=== PATIENT | female | born 1980 | race Caucasian/White ===

== ENCOUNTER 2018-04-26 15:12 | Emergency (ER) | payer SELFPAY ==
[2018-04-26 16:12] VITALS: BMI 31.7
[2018-04-26 16:15] VITALS: BP 120/79; PULSE 63; RESP 18; TEMP 98.3; O2SAT 100
[2018-04-26] MEDS ORDERED: Lidocaine 1% Inj (20ml) IJ STA (16:16)
--- NOTE | 2018-04-26 16:16 | ED PDOC ---
Arrival/HPI - General Chief Complaint: Abnormal Skin Integrity Time Seen by Provider: 04/26/18 16:15 Historian: Patient - History of Present Illness Narrative History of Present Illness (Text): 04/26/18 16:15 37 y/o female, no significant pmh, nkda, last tetanus over 10 years ago, c/o lt. hand palmar laceration x 2 hours s/p cut by the metal spatula. Pt. stated that it's a clean spatula, was bleeding but resolved, no numbness or tingling, no weakness, no palpitation, no headache, no dizziness, no other medical or psychological complaints. Past Medical History - Provider Review Nursing Documentation Reviewed: Yes - Infectious Disease Hx of Infectious Diseases: None - Psychiatric Hx Substance Use: No - Surgical History Hx Section: Yes (x2) - Anesthesia Hx Anesthesia: Yes Hx Anesthesia Reactions: No Hx Malignant Hyperthermia: No Family/Social History - Physician Review Nursing Documentation Reviewed: Yes Family/Social History: Unknown Family HX Smoking Status: Never Smoked Hx Alcohol Use: No Hx Substance Use: No Allergies/Home Meds Allergies/Adverse Reactions: Allergies No Known Allergies Allergy (Verified 04/26/18 16:12) Home Medications: Home Meds Medication Instructions Recorded Confirmed No Known Home Med 04/26/18 04/26/18 Review of Systems - Review of Systems Constitutional: absent: Fatigue, Fevers Eyes: absent: Vision Changes ENT: absent: Hearing Changes Respiratory: absent: SOB, Cough Cardiovascular: absent: Chest Pain Gastrointestinal: absent: Abdominal Pain, Nausea, Vomiting Musculoskeletal: absent: Arthralgias, Back Pain Skin: Laceration. absent: Rash, Pruritis, Abscess, Ulcer, Cellulitis Neurological: absent: Headache, Dizziness Psychiatric: absent: Anxiety, Depression, Suicidal Ideation Physical Exam Vital Signs Reviewed: Yes Vital Signs Temp Pulse Resp BP Pulse Ox 04/26/18 16:15 98.3 F 63 18 120/79 100 Temperature: Afebrile Blood Pressure: Normal Pulse: Regular Respiratory Rate: Normal Appearance: Positive for: Well-Appearing, Non-Toxic, Comfortable Pain Distress: Mild Mental Status: Positive for: Alert and Oriented X 3 - Systems Exam Head: Present: Atraumatic, Normocephalic Pupils: Present: PERRL Extroacular Muscles: Present: EOMI Conjunctiva: Present: Normal Mouth: Present: Moist Mucous Membranes Neck: Present: Normal Range of Motion Respiratory/Chest: Present: Clear to Auscultation, Good Air Exchange. No: Respiratory Distress, Accessory Muscle Use Cardiovascular: Present: Regular Rate and Rhythm, Normal S1, S2. No: Murmurs Abdomen: No: Tenderness, Distention, Peritoneal Signs Back: Present: Normal Inspection Upper Extremity: Present: Normal Inspection, Other (Lt. hand palmar visible approx. 3.5cm noted on the proximal palmar region superifical to intermediate depth with no visible foreign bodies, no oozing/discharge, FROM without limitation, sensation intact, motor 5/5, +radial pulse, capillary refill< 2 seconds, neurovascular intact. ). No: Cyanosis, Edema Lower Extremity: Present: Normal Inspection. No: Edema Neurological: Present: GCS=15, CN II-XII Intact, Speech Normal, Motor Func Grossly Intact, Gait Normal, Memory Normal Skin: Present: Warm, Dry, Normal Color. No: Rashes Psychiatric: Present: Alert, Oriented x 3, Normal Insight, Normal Concentration Medical Decision Making ED Course and Treatment: 04/26/18 16:23 -tdap -Pt. declined xray of the lt. hand as she feels there is no foreign body sensation -Will suture 04/26/18 16:28 -Pt. refused medications/lidocaine -Pt. told the MEDICARE CONTACT SPECIALIST that she's waiting too long and wanna go to another ER. - PA / ETCHER MACHINE / Resident Statement / has reviewed & agrees with the documentation as recorded. Disposition/Present on Arrival - Present on Arrival Any Indicators Present on Arrival: No History of DVT/PE: No History of Uncontrolled Diabetes: No Urinary Catheter: No History of Decub. Ulcer: No History Surgical Site Infection Following: None - Disposition Have Diagnosis and Disposition been Completed?: Yes Diagnosis: Hand laceration Disposition: ELOPEMENT - ER ONLY Disposition Time: 16:27 Condition: GOOD Forms: Fluid Stone (Latvian)
== END 2018-04-26 16:29 | disposition left against medical advice (07) ==
LOC: ED 15:12 → MERGE 15:12 → ED 16:29
DX: S61.412A Laceration without foreign body of left hand, initial encounter (principal); W45.8XXA Other foreign body or object entering through skin, initial encounter; Y92.9 Unspecified place or not applicable